=== PATIENT | male | born 1955 | race Caucasian/White ===

== ENCOUNTER 2019-12-22 07:05 | Outpatient (REF) | payer OTHER, SELFPAY ==
[2019-12-22 12:14] LABS: Anion Gap 13 (12-20); Blood Urea Nitrogen 16 mg/dL (9-16); Calcium 8.7 mg/dL (8.4-10.2); Carbon Dioxide 26 mmol/L (22-29); Chloride 106 mmol/L (96-108); Cholesterol 189 mg/dL; Estimated Glomerular Filt Rate > 60; Glucose Fasting 93 mg/dL (60-99); HDL Cholesterol 41 mg/dL; LDL Cholesterol Calculated 121 mg/dl; Potassium 4.4 mmol/l (3.3-5.1); Sodium 141 mmol/L (135-145); Triglycerides 136 mg/dL
[2019-12-22 12:28] LABS: TSH reflex Free T4 1.82 mIU/mL (0.32-4.0)
== END 2019-12-22 07:06 | disposition home or self-care (01) ==
LOC: HO.HMGCLDS 07:05
PROVIDERS: PCP Nurse Practitioner Family; Visit Provider Nurse Practitioner Family
DX: Z00.00 Encounter for general adult medical examination without abnormal findings (principal); Z12.5 Encounter for screening for malignant neoplasm of prostate
CPT/HCPCS: 80048; 80061; 84153; 84443

== ENCOUNTER → 2020-01-05 12:50 | Outpatient (BNVA) | payer OTHER, SELFPAY | PROVIDERS: PCP Internal Medicine; Visit Provider Nurse Practitioner Family | DX: Z76.89 Persons encountering health services in other specified circumstances (principal) ==

== ENCOUNTER 2020-01-22 07:20 | Day surgery (SDC) | payer OTHER, SELFPAY ==
[2020-01-16 15:54] VITALS: BMI 27.3
--- NOTE | 2020-01-21 09:25 | HO.ANESPROP2 ---
Documented by User: Nancy Hazel 01/21/20 09:31 HPI - Anesthesia Eval Consult details Narrative: 64yo M for Colonoscopy [facility] [place] Past Medical History Medical History History of concussion History of DVT (deep vein thrombosis) Family History Family History Father Skin cancer Cirrhosis Mother Brain tumor Fracture of vertebra HTN (hypertension) Brother No problems noted. Sister No problems noted. Surgical History Surgical History History of deviated nasal septum Hx of colonoscopy Plantar fasciitis of right foot Social History Social History Alcohol intake: current Alcohol intake frequency: holidays/special occasions only Smoking Status: Former smoker Smoking Quit Date: 2009 Use of substances other than those prescribed or required for medical reasons: No Have you been hit, kicked, punched, or otherwise hurt by someone within the past year? If so, by whom?: No Advance Directives: No Advance Directives Information Provided: No Advance Directives on File: No Recently lost weight without trying: No Meds Allergies Allergy/AdvReac Type Severity Reaction Status Date / Time No Known Allergies Allergy Verified 01/05/20 12:51 Home Medications Medication Instructions Recorded Confirmed Type aspirin 81 mg tablet,delayed 81 mg PO DAILY 11/27/19 01/16/20 History release Exam Exam Date and Time: January 21, 2020 0925 Height,Weight and Vital Signs: Height 5 ft 8 in Weight 81.647 kg Assessment and Plan Assessment Anesthesia Assessment: Chart Reviewed Documented by User: Ricardo Riggs 01/22/20 08:04 [facility] [place] Past Medical History Medical History History of concussion History of DVT (deep vein thrombosis) Family History Family History Father Skin cancer Cirrhosis Mother Brain tumor Fracture of vertebra HTN (hypertension) Brother No problems noted. Sister No problems noted. Surgical History Surgical History History of deviated nasal septum Hx of colonoscopy Plantar fasciitis of right foot Social History Social History Alcohol intake: current Alcohol intake frequency: holidays/special occasions only Smoking Status: Former smoker Smoking Quit Date: 2009 Use of substances other than those prescribed or required for medical reasons: No Have you been hit, kicked, punched, or otherwise hurt by someone within the past year? If so, by whom?: No Advance Directives: No Advance Directives Information Provided: No Advance Directives on File: No Recently lost weight without trying: No Meds Allergies Allergy/AdvReac Type Severity Reaction Status Date / Time No Known Allergies Allergy Verified 01/05/20 12:51 Home Medications Medication Instructions Recorded Confirmed Type aspirin 81 mg tablet,delayed 81 mg PO DAILY 11/27/19 01/16/20 History release Exam Airway Mallampati Class: II TM Dist: >3cm Neck ROM: Full Partial: Upper and Lower Loose/Missing/Broken Teeth: No Heart: [id number] Lungs: cta b/l Assessment and Plan Assessment Anesthesia Assessment: Anesthesia Plan Discussed, PAT Visit and Chart Reviewed Final Anesthetic Review NPO: Yes ASA Class: II Final Preanesthetic Review: No Changes in Pt Med Stat, Meds/Allgs Chart Reviewed, Consent Obtained/Reviewed and Anes Risks/Benef Reviewed Patient Risk: Low Procedure Risk: Low Assessment/Block/Sedation in SS: Assess/Block/Sedation-SS Anesthetic Plan Anesthetic Plan: MAC: Disposition: Standard PACU
[2020-01-22 07:57] VITALS: BP 141/72; PULSE 68; RESP 18; TEMP 36; O2SAT 96
[2020-01-22] MEDS: Lactated Ringers 1,000 ML 100 ML IVCONT (08:31)
--- NOTE | 2020-01-22 08:31 | MHC.SHP ---
Pre-Procedural Eval Section B Chief Complaint: TUBULAR ADENOMA Allergies: Allergies Allergy/AdvReac Type Severity Reaction Status Date / Time No Known Allergies Allergy Verified 01/05/20 12:51 Plan Patient has been examined and remains a candidate for the planned procedure--yes
[2020-01-22 09:00] VITALS: BP 139/77; PULSE 69; RESP 15; TEMP 36.4; O2SAT 97
[2020-01-22 09:03] VITALS: BP 112/75
--- NOTE | 2020-01-22 09:04 | PM.OP ---
Brief Operative Note Date of Service: 01/22/20 Pre-op diagnosis: History of tubular adenoma Post-op diagnosis: other (Incompleted exam ? serrated adenoma @ 20cm-bx) Procedure: colonoscopy to hepatic flexure solid stool present Implants: no Surgeon: Leti Parmar MD Anesthesia: MAC (md Hugh) Estimated blood loss (mL): 0 Pathology: none sent Condition: stable Disposition: other
[2020-01-22 09:15] VITALS: BP 138/87; PULSE 58; RESP 16; TEMP 36.4; O2SAT 97
--- NOTE | 2020-01-22 09:32 | HO.POSTANES ---
Post Anesthesia Evaluation Post Anesthesia Evaluation Vital Signs: Vital Signs Temp Pulse Resp BP Pulse Ox 01/22/20 09:15 97.6 F 58 16 138/87 97 01/22/20 09:03 112/75 01/22/20 09:00 97.6 F 69 15 139/77 97 01/22/20 07:57 96.8 F 68 18 141/72 H 96 Anesthesia: Monitored Mental Status: Awake Pain Control: Satisfactory Nausea/Vomiting: None Hydration: Adequate Anesthesia-Related Issues: No Anes. Related Issues
--- NOTE | 2020-01-26 11:48 | OP_ITS ---
SURGEON: Leti Parmar MD PREOPERATIVE DIAGNOSIS: Colon cancer screening (Dubious prep.) POSTOPERATIVE DIAGNOSIS: Poor prep. Able to visualize colon to 25 cm. Despite poor prep, see description below. Significant polyp at 20 cm, diverticulosis. PROCEDURE PERFORMED: Colonoscopy with biopsy. ESTIMATED BLOOD LOSS: Minimal blood loss. COMPLICATIONS: No complications. ANESTHESIA: Monitored. ANESTHESIOLOGIST: Dr. Riggs ASSISTANTS: No bankruptcy legal assistant. SPECIMENS: Specimen removed; polyp biopsy. PREOPERATIVE DIAGNOSES: Colon cancer screening, previous history of tubular adenoma. From initial preoperative evaluation, the patient appears to not have taken the prep correctly. He was given a fleets enema x1; however, he appears to have taken only 1 dose of 17 g of MiraLAX for his prep. PHOTO TUBE ASSEMBLER: Dr. Parmar. CONDITION: Postprocedure, stable. FINDINGS: Digital rectal exam revealed adequate sphincter tone. Prostate was normal. Video colonoscope was introduced without difficulty. The scope was able to be advanced through rectum and rectosigmoid area up to about 25 cm when we began to encounter his column of somewhat soft slightly yellow tinged stool. I was able to maneuver through the colon to the level of the proximal transverse colon/hepatic flexure. The stool was soft. No evidence of bleeding. There were diverticula seen, primarily left-sided. Due to lack of visibility, the procedure was stopped at this point. Scope was slowly withdrawn. In the region of 20 cm, there was an approximately 0.5 cm flat polyp, having somewhat of serrated appearance. This was biopsied. Removal was forwarded due to the prep problem. Scope continued to be withdrawn. PLAN: This patient will need to be re-examined in approximately 6 to 12 months. Suggestion of the prep for the procedure be re-explained to the patient more clearly if he tends to be constipated, consideration for the pre-prep preliminary cleansing with Dulcolax 2 tablets on the day before the prep may be appropriate. ADDENDUM: The patient should have FIT testing. My office will send this out. I would suggest also that this patient have a CBC on his next regular routine lab work just to make sure that were not dealing with any underlying iron-deficiency anemia. GRAFT OR IMPLANTS: No grafts or implants. Leti Parmar MD MEN/MODL / [id number] KIM
== END 2020-01-22 10:00 | disposition home or self-care (01) ==
PROVIDERS: PCP Nurse Practitioner Family; Visit Provider Internal Medicine Gastroenterology
PROC: 0DJD8ZZ Inspection of Lower Intestinal Tract, Via Natural or Artificial Opening Endoscopic (ICD-10-PCS; CPT 45378; principal; 2020-01-22 08:30)
DX: Z12.11 Encounter for screening for malignant neoplasm of colon (principal); K63.5 Polyp of colon; K57.30 Diverticulosis of large intestine without perforation or abscess without bleeding; Z86.010 Personal history of colon polyps
CPT/HCPCS: 45331; 88305

== ENCOUNTER 2020-01-28 | Outpatient (REF) | payer OTHER, SELFPAY ==
[2020-02-03 14:52] LABS: FIT Int Ctl YES; FIT1 NEGATIVE (NEGATIVE); FIT2 NEGATIVE (NEGATIVE)
== END 2020-01-28 00:01 | disposition home or self-care (01) ==
LOC: HO.LNP
PROVIDERS: Visit Provider Internal Medicine Gastroenterology
DX: R19.5 Other fecal abnormalities (principal)
CPT/HCPCS: 82274

== ENCOUNTER → 2020-01-29 10:56 | Outpatient (BNVA) | payer OTHER, SELFPAY | PROVIDERS: PCP Nurse Practitioner Family; Visit Provider Nurse Practitioner Family | DX: Z76.89 Persons encountering health services in other specified circumstances (principal) ==

== ENCOUNTER → 2020-06-24 14:05 | Outpatient (BNVA) | payer OTHER, SELFPAY | PROVIDERS: PCP Nurse Practitioner Family; Visit Provider Nurse Practitioner Family ==

== ENCOUNTER 2020-07-27 10:15 | Day surgery (SDC) | payer OTHER, SELFPAY ==
[2020-07-22 11:01] VITALS: BMI 27.3
--- NOTE | 2020-07-26 10:04 | HO.ANESPROP2 ---
Documented by User: Nancy Hazel 07/26/20 10:04 HPI - Anesthesia Eval Consult details Narrative: 65yo M for Colonoscopy s/p colo with MAC 01/2020 (repeat d/t poor prep) [facility] Active Problems Active Problems: All Active Problems (Updated 07/07/20 @ 10:44 by Chris Webster, [facility] [place]) Physical exam (Acute) Screening PSA (prostate specific antigen) (Acute) Obesity (Acute) Skin lesion of face (Acute) Past Medical History Medical History History of concussion History of DVT (deep vein thrombosis) Tubular adenoma Family History Family History Father Skin cancer Cirrhosis Mother Brain tumor Fracture of vertebra HTN (hypertension) Brother No problems noted. Sister No problems noted. Surgical History Surgical History History of deviated nasal septum Hx of colonoscopy Plantar fasciitis of right foot Social History Social History Alcohol intake: current Alcohol intake frequency: holidays/special occasions only Patient Tobacco Use Status: Former Tobacco user Tobacco use type: Cigarette Use of substances other than those prescribed or required for medical reasons: No Are you DNR?: No Advance Directives Information Provided: No Meds Allergies Allergy/AdvReac Type Severity Reaction Status Date / Time No Known Allergies Allergy Verified 07/27/20 10:56 Home Medications Medication Instructions Recorded Confirmed Last Taken Type aspirin 81 mg tablet,delayed 81 mg PO DAILY 11/27/19 07/22/20 07/24/20 08:00 History release Exam Exam Date and Time: July 26, 2020 1004 Height,Weight and Vital Signs: Height 5 ft 8 in Weight 81.647 kg Assessment and Plan Assessment Anesthesia Assessment: Chart Reviewed Documented by User: Umu Delcid 07/27/20 13:00 [facility] Past Medical History Medical History History of concussion History of DVT (deep vein thrombosis) Tubular adenoma Family History Family History Father Skin cancer Cirrhosis Mother Brain tumor Fracture of vertebra HTN (hypertension) Brother No problems noted. Sister No problems noted. Surgical History Surgical History History of deviated nasal septum Hx of colonoscopy Plantar fasciitis of right foot Social History Social History Alcohol intake: current Alcohol intake frequency: holidays/special occasions only Patient Tobacco Use Status: Former Tobacco user Tobacco use type: Cigarette Use of substances other than those prescribed or required for medical reasons: No Are you DNR?: No Advance Directives Information Provided: No Meds Allergies Allergy/AdvReac Type Severity Reaction Status Date / Time No Known Allergies Allergy Verified 07/27/20 10:56 Home Medications Medication Instructions Recorded Confirmed Last Taken Type aspirin 81 mg tablet,delayed 81 mg PO DAILY 11/27/19 07/22/20 07/24/20 08:00 History release Exam Airway Mallampati Class: II TM Dist: >3cm Neck ROM: Full
[2020-07-27 11:05] VITALS: BP 145/81; PULSE 66; RESP 18; TEMP 36.3; O2SAT 96
[2020-07-27] MEDS: Lactated Ringers 1,000 ML 100 ML IVCONT (11:21)
--- NOTE | 2020-07-27 11:56 | W.PM.OPN ---
Operative Note Operative Note Date of Service: 07/27/20 Narrative: Pre-op diagnosis: colon cancer screening, hx of colon polyps Post-op diagnosis: other (Colon polyps, diverticulosis, hemorrhoids) Procedure: COLONOSCOPY TILL CECUM WITH BIOPSIES AND SNARE POLYPECTOMY Consent: Indications for the procedure and potential complications of bleeding, perforation, reaction to medications and missed diagnosis were discussed with the patient and informed consent was obtained. Instrument: Olympus PCF H 190 L variable stiffness pediatric colonoscope Monitoring: Vital signs and clinical assessment, intermittent blood pressure monitoring, continuous EKG monitoring, Pulse oximetry and Carbon Dioxide monitoring were done throughout the procedure. Colon withdrawl time was 28 minutes. Procedure: The patient was placed in the left lateral decubitis position and pre-procedure medications were administered. After a digital rectal examination of the ano-rectum, the video colonoscope was inserted into the rectum and advanced through the colon to the cecum. The colonoscope was slowly withdrawn in a retrograde panoramic fashion and the colon mucosa was carefully examined including a retroflexed view of the rectum. Findings and interventions are described below. Procedure Difficulty: Colon was long and tortuous and there was spasm and recurrent loop formation - no maneuvers were required Findings: Terminal Ileum: Not evaluated Cecum: Normal Ascending Colon: Normal Transverse Colon: A 10 mm sessile adenomatous appearing polyp removed with a cold snare and polyp was not retrieved Descending Colon: Moderate diverticulosis Sigmoid Colon: An 8-9 mm sessile polyp removed with a cold bx. Severe diverticulosis with luminal narrowing. Rectum: A 1.5 to 2 cms sessile polyp removed with a hot snare Ano-rectum: Small internal hemorrhoids Colon preparation: Good after copious irrigation Impression and Post Procedure Diagnosis: Colonoscopy Findings: Three polyps removed - 1 polyp was not retrieved Moderate to severe diverticulosis seen in the left colon Small hemorrhoids on retroflexed exam. Plan: Await pathology results Patient has an appointment on 08/17/20 in the GI Clinic with Lyla Diggs FNP-MAYI . Repeat Colonoscopy interval based on path results - in 3-5 years if polyps are adenomatous and due to history of adenomatous colon polyps Above findings were reviewed with the patient and colon polyps and diverticulosis handouts were given in the discharge area Surgeon: Jewel Hough MD Anesthesia: MAC (Dr Delcid) Was an Sole Leather Cutting Machine Operator used for this Procedure?: No Sole Leather Cutting Machine Operator: Jese Aylin Estimated blood loss (mL): 0 Pathology: other (A- SIGMOID POLYP B- RECTAL POLYP) Condition: stable Disposition: PACU
--- NOTE | 2020-07-27 11:56 | MHC.SHP ---
Pre-Procedural Eval Section A The patient is an INPATIENT: No The History & Physical has been completed within 30 days and I have reviewed it.: No Section B Chief Complaint: Screening Details of Present Illness: Colon cancer screening Relevant Family History (Specify if Yes): No Relevant Social History: Tobacco Use (Former smoker) Present Medications: see Short Stay Collaborative assessment Medical History: Significant History (History of concussion History of DVT (deep vein thrombosis) Tubular adenoma) History of Previous Operations: Relevant previous surgery/procedure and date(s) (History of colonoscopy History of deviated nasal septum Hx of colonoscopy Plantar fasciitis of right foot) Allergies: Allergies Allergy/AdvReac Type Severity Reaction Status Date / Time No Known Allergies Allergy Verified 07/27/20 10:56 Review of Systems Sugical H&P ROS: Negative: Constitution, Cardiovascular, Respiratory and Gastrointestinal Exam Surgical H&P Exam: Normal: Heart, Normal: Lungs, Normal: Extremities and Normal: Abdomen Plan Diagnosis/Plan: Unchanged I have reviewed the history and physical and performed a pertinent physical examination on my patient. No changes have occurred unless specified.
[2020-07-27 14:02] VITALS: BP 142/74; PULSE 65; RESP 16; TEMP 36.2; O2SAT 99
[2020-07-27 14:12] VITALS: BP 142/72; PULSE 62; RESP 18; O2SAT 99
== END 2020-07-27 14:50 | disposition home or self-care (01) ==
PROVIDERS: PCP Internal Medicine; Visit Provider Internal Medicine Gastroenterology
PROC: 0DJD8ZZ Inspection of Lower Intestinal Tract, Via Natural or Artificial Opening Endoscopic (ICD-10-PCS; CPT 45378; principal; 2020-07-27 11:50)
DX: Z12.11 Encounter for screening for malignant neoplasm of colon (principal); Z86.010 Personal history of colon polyps; K63.5 Polyp of colon; K62.1 Rectal polyp; K57.30 Diverticulosis of large intestine without perforation or abscess without bleeding; K64.8 Other hemorrhoids; Z86.718 Personal history of other venous thrombosis and embolism; Z87.891 Personal history of nicotine dependence; Z79.82 Long term (current) use of aspirin
CPT/HCPCS: 45385; 45380; 88305

== ENCOUNTER → 2020-08-17 09:51 | Outpatient (BNVA) | payer OTHER, SELFPAY | PROVIDERS: Visit Provider Nurse Practitioner Family ==

== ENCOUNTER 2021-11-23 09:55 | Outpatient (REF) | payer MEDICARE, BC, SELFPAY ==
[2021-11-23 11:36] LABS: Cholesterol 175 mg/dL; Glucose Fasting 101 mg/dL (60-99); HDL Cholesterol 37 mg/dL; LDL Cholesterol Calculated 126 mg/dl; Triglycerides 63 mg/dL
[2021-11-23 12:40] LABS: PSA,Total (Free>4and<10) 1.18 ng/mL (0.00-4.00)
[2021-11-28 17:56] LABS: Testosterone, Total 793 ng/dL (250-1100)
== END 2021-11-23 09:56 | disposition home or self-care (01) ==
LOC: HO.HMGCLDS 09:55
PROVIDERS: PCP Internal Medicine; Visit Provider Internal Medicine
DX: Z00.00 Encounter for general adult medical examination without abnormal findings (principal); N52.9 Male erectile dysfunction, unspecified; E66.9 Obesity, unspecified; Z13.6 Encounter for screening for cardiovascular disorders; Z12.5 Encounter for screening for malignant neoplasm of prostate
CPT/HCPCS: 36415; 80061; 82947; 84153; 84402; 84403

== ENCOUNTER 2022-11-30 08:27 | Outpatient (AMB) | payer MEDICARE, BC, SELFPAY ==
--- NOTE | 2022-11-30 08:33 | A.OFFVIS_ITS ---
Intake Vital Signs 11/30/22 08:37 Height 5 ft 8 in Weight 191 lb 8 oz BMI 29.1 BP 130/88 Blood Pressure Location Rt brachial Position Sitting Pulse 65 Pulse Source Pulse Oximeter Pulse Oximetry (%) 96 Oxygen Delivery Method Room Air Intake Visit Reasons: SWV Allergies No Known Allergies Allergy (Verified 12/01/22 01:17) Medication List - Last Reconciled 12/01/22 by Emmanuelle Melo MD aspirin 81 mg PO DAILY sildenafil 100 mg PO DAILY PRN HPI SWV HPI Details SWV ? 67-year-old male with no significant past medical history except for erectile dysfunction, here today for his subsequent wellness Visit. He is up-to-date with his screening colonoscopy done 07/27/[address] Hough, had a normal fasting lipid panel screening done 11/23/2021 together with fasting blood sugar check and prostate cancer screening within normal PSA 11/23/2021. He is up-to-date with his Shingrix vaccination, Tdap and Prevnar 20. Rosalia chandjulio states that he will be scheduling his flu vaccine and COVID booster vaccine at his pharmacy. ? Medical / Social History Reviewed? Past Medical History ?Yes . ? [place] of Care / Care Team list updated ?Yes . ? Surgical/Hospitalization History ?Yes . ? Current Medications (including OTC and supplements) ?Yes . ? Family History ?Yes . ? Tobacco Control form ?Yes . ? AUDIT-C (Alcohol use) form ?Yes . ? Illicit drug use in Social History ?Yes . ? Current diagnosis of depression? ?No ? Appropriate PHQ2/PHQ9 completed ?Yes . ? 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 Fall Risk ? Fall History? Have you had any falls with injury in the past year? ?No . ? Have you had two or more falls in the past year? ?No . ? Fall Risk Assessment: ?No falls in the past year . ? HRA filled out by the patient, reviewed by Provider and scanned. ? IPPE/AWV ? Balance? Romberg ?Yes . ? Tandem walk ?Yes . ? Walk and Turn ?Yes . ? Rise from sit to stand ?Yes . ?Vision? Corrective lens ?Yes ? Vision screen ? 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 Whisper test ?pass . ?Written Plan?Completed. See Patient Documents.? [facility] Medical History (Updated 12/01/22 @ 01:28 by Emmanuelle Melo MD) History of basal cell cancer Erectile dysfunction Tubular adenoma History of DVT (deep vein thrombosis) History of concussion Surgical History (Updated 12/01/22 @ 01:27 by Emmanuelle Melo MD) History of Mohs surgery for squamous cell carcinoma of skin Hx of colonoscopy History of deviated nasal septum Plantar fasciitis of right foot Family History Father Skin cancer Cirrhosis Mother Brain tumor Fracture of vertebra HTN (hypertension) Brother No problems noted. Sister No problems noted. Social History Alcohol intake: current Alcohol intake frequency: holidays/special occasions only Patient Tobacco Use Status: Former Tobacco user Tobacco use type: Cigarette Questionnaire Medicare Wellness Checkup [age] What gender do you identify with?: male During the past 4 weeks, how much have you been bothered by emotional problems such as feeling anxious, depressed, irritable, sad or downhearted, and blue?: not at all During the past 4 weeks, has your physical & emotional health limited your social activities with family, friends, neighbors, or groups?: moderately During the past 4 weeks, how much bodily pain have you generally had?: moderate pain During the past 4 weeks, was someone available to help you if you needed & wanted help?: yes, as much as I wanted During the past 4 weeks, what was the hardest physical activity you could do for at least 2 minutes?: heavy Can you get to places out of walking distance without help? (For eg., can you travel alone on buses, taxis or drive your car?): Yes Can you go shopping for groceries or clothes without someone's help?: Yes Can you prepare your own meals?: Yes Can you do your housework without help?: Yes Because of any health problems, do you need the help of another person with your personal care needs such as eating, bathing, dressing or getting around the house?: No Can you handle your own money without help?: Yes During the past 4 weeks, how would you rate your health in general?: excellent During the past 4 weeks how have things been going for you?: very well; could hardly better Are you having difficulties driving your car?: no Do you always fasten your seat belt when you are in a car?: yes, usually During past 4 weeks, have you been bothered by the following: never: Falling or dizzy when standing up, Sexual problems?, Trouble eating well?, Teeth or denture problems? and Problems using the telephone? Have you fallen 2 or more times in the past year?: No Are you afraid of falling?: No Are you a smoker?: no During the past 4 weeks, how many drinks of wine, beer, or other alcoholic beverages did you have?: 2-5 drinks per week Do you exercise for about 20 minutes 3 or more times a week?: yes, most of the time Have you been given information to help with the following?: no: Hazards in your house that might hurt you? and no: Keeping track of your medications? How often do you have trouble taking medicines the way you have been told to take them?: I always take medicine as prescribed How confident are you that you can control & manage most of your health problems?: very confident What is your race?: White Mini Mental State Exam (MMSE) Orientation What is the (year) (season) (date) (day) (month)?: year (2022), season (Fall), date (11/30/2022), day () and month (November) Where are we (state) (county) (town or city) (hospital) (floor)?: state ([place]), [facility] ([place]), town or city ([place]) and hospital/clinic ([facility]) Score Score: 9 Activity of Daily Living Bathing - sponge bath, tub bath or shower: receives no assistance (gets in/out by self, if usual bathing means Dressing - getting clothes from closets & drawers, including inner/outer garments & fasteners.: gets clothes & gets completely dressed without help Toileting - going to the 'toilet room' for urine/bowel elimination & cleaning self/arranging clothes: goes to toilet room, cleans self, arranges clothes without help Transfer: moves in & out of bed and chair without help (may use support object) Continence: controls urination/bowel movements completely by self Feeding: feeds self without help Total Score: 0 Information obtained from: patient Using telephone: independent Traveling: independent Shopping: independent Preparing meals: independent Housework: independent Taking medicine: independent Managing money: independent PHQ-9 Over the last 2 weeks, how often have you been bothered by any of the following problems? 1. Little interest or pleasure in doing things: not at all 2. Feeling down, depressed, or hopeless: not at all 3. Trouble falling or staying asleep, or sleeping too much: not at all 4. Feeling tired or having little energy: not at all 5. Poor appetite or overeating: not at all 6. Feeling bad about yourself - or that you are a failure or have let yourself or your family down: not at all 7. Trouble concentrating on things, such as reading the newspaper or watching television: not at all 8. Moving or speaking so slowly that other people could have noticed. Or the opposite - being so fidgety or restless that you have been moving around a lot more than usual: not at all 9. Thoughts that you would be better off or of hurting yourself in some way: not at all Total score: 0 Depression Screening Interpretation: Negative Depression Screening Done: Yes 84405 - PHQ-9 Billing: Yes Source: Developed by Drs. Ananth Beauchamp, Carmelina Browning, Fede Lieberman and colleagues, with an educational jimmy from [employer]. Physical Exam Vital Signs: Last Vital Signs Pulse 65 11/30/22 08:37 BP 130/88 11/30/22 08:37 Pulse Ox 96 11/30/22 08:37 Oxygen Delivery Method Room Air 11/30/22 08:37 BMI result Body Mass Index 29.1 Assessment & Plan Assessment & Plan (1) Erectile dysfunction: Code(s): N52.9 - Male erectile dysfunction, unspecified Qualifiers: Erectile dysfunction type: unspecified Qualified Code(s): N52.9 - Male erectile dysfunction, unspecified Plan: Refill sent for sildenafil 100 mg per tablet to take as needed once a day (2) History of basal cell cancer: Code(s): Z85.828 - Personal history of other malignant neoplasm of skin Plan: 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 Healthcare proxy done today. Reminded to get his COVID booster and flu vaccine, which she will be scheduling at his pharmacy. (4) Advanced directives, counseling/discussion: Code(s): Z71.89 - Other specified counseling Plan: Initiated the conversation about Advanced Directives. Advanced Directives help patients prepare for current and future decisions about their medical treatment and place of care. Discussed with patient that it is a process where a patients current condition and prognosis are reviewed, their wishes for information regarding their illness are elicited, and likely medical dilemmas are presented and options discussed. Healthcare proxy done today, he already has a MOLST form completed on last visit. These forms can be amended as needed, reviewed yearly and make changes as needed Medications: Refilled sildenafil administer 30 minutes to 4 hours before activity 100 mg PO DAILY PRN 10 tabs 5RF sexual activity sildenafil administer 30 minutes to 4 hours before activity 100 mg PO DAILY PRN 10 tabs 0RF sexual activity Quality Reporting (2019) Depression/Bipolar (159/160/161/177) PHQ-9: Total score: 0 Coding Level of Care Code Medicare Subsequent (G0439) Diagnoses Erectile dysfunction, unspecified erectile dysfunction type N52.9 Erectile dysfunction type: unspecified History of basal cell cancer Z85.828 Encounter for subsequent annual wellness visit (AWV) in Medicare patient Z00.00 Advanced directives, counseling/discussion Z71.89 CPT Codes Advance Care Planning - Time spent: 16-45 minutes ([id number]) Advance Care Planning Advance Care Planning discussion: Completed/Scanned Date of discussion: 11/30/22 Who was present: Patient Forms completed: Health Care Proxy Time spent: 16-45 minutes Actual minutes spent: 16
[2022-11-30 08:37] VITALS: BP 130/88; PULSE 65; O2SAT 96; BMI 29.1
== END 2022-11-30 09:39 | disposition home or self-care (01) ==
PROVIDERS: Visit Provider Internal Medicine
DX: Z00.00 Encounter for general adult medical examination without abnormal findings (principal); Z85.828 Personal history of other malignant neoplasm of skin; N52.9 Male erectile dysfunction, unspecified; Z71.89 Other specified counseling
CPT/HCPCS: 99497; G0439